=== PATIENT | male | born 1960 | race Caucasian/White ===

== ENCOUNTER 2017-10-19 06:19 | Emergency (ER) | payer OTHER ==
[~2017-10-19] VITALS: Ht 177.8 cm; Wt 113.4 kg
[~2017-10-19 06:19] MED LIST: HYDROCHLOROTH12.5 M3 PO
[2017-10-19 06:36] VITALS: BP 138/89
--- NOTE | 2017-10-19 07:22 | ED EYE COMPLAINT ---
History of Present Illness General Chief Complaint: Eye Problems Stated Complaint: LEFT EYE SWOLLEN SHUT STARTED OFF A STYE Source: patient, old records Exam Limitations: no limitations Vital Signs & Intake/Output Vital Signs & Intake/Output Vital Signs Date Time Temp Pulse Resp B/P B/P Pulse O2 O2 Flow FiO2 Mean Ox Delivery Rate 10/19 0636 97.7 61 18 138/89 97 Room Air Allergies Coded Allergies: No Known Allergies (11/01/15) Reconcile Medications Amoxicillin 250 MG CAPSULE 1 CAP PO TID STYE Hydrochlorothiazide 12.5 MG CAPSULE 1 CAP PO DAILY HIGH BLOOD PRESSURE Triage Note: PT TO ED C/O RT EYE PAIN, SWELLING AND YELLING DRAINAGE, GETTING WORSE OVER THE LAST 4 DAYS. HAS TRIED WARM COMPRESSES, CONTINUES TO WORSEN Triage Nurses Notes Reviewed? yes HPI: Patient noticed a stye forming on his left upper eyelid 3 days ago. Patient has been using warm compresses. This morning he woke up and his eyelid was very swollen and it was crusted shut. Patient needed to remove the crust with a warm washcloth. There is no blurry vision. Patient states that it hurts every time he blinks. There is no pain in his eye, that all the pain is in his upper eyelid. Patient denies any fevers or chills. Past History Travel History Traveled to [place] past 21 day No Medical History Any Pertinent Medical History? see below for history Cardiovascular: hypertension, AR X 2 Surgical History Surgical History: non-contributory Psychosocial History What is your primary language Cambodian Tobacco Use: Current Daily Use Daily Tobacco Use Amount/Type: => 5 Cigarettes daily ETOH Use: occasional use Illicit Drug Use: denies illicit drug use Family History Hx Contributory? No Review of Systems Review of Systems Constitutional: Reports: no symptoms. Eyes: Reports: see HPI. Respiratory: Reports: no symptoms. Cardiovascular: Reports: no symptoms. GI: Reports: no symptoms. Neurological/Psychological: Reports: no symptoms. Immunologic/Allergic: Reports: no symptoms. Physical Exam General Appearance: well developed/nourished, alert, awake, anxious General Inspection: normal inspection Eyelid: stye Conjunctiva/Sclera: normal inspection Cornea: normal inspection EOM: intact Pupil: normal accommodation, normal pupil, PERRL General Inspection: normal inspection EOM: intact Pupil: normal accommodation, normal pupil, PERRL Physical Exam Cardiovascular/Respiratory: normal breath sounds, normal peripheral pulses, regular rate/rhythm, no respiratory distress Neurologic/Psych: no motor/sensory deficits, awake, alert, oriented x 3, normal mood/affect Progress Differential Diagnosis: STYE Plan of Care: Current Medications Sig/Rachael Start time Last Medication Dose Stop Time Status Admin Amoxicillin 250 MG ONCE ONE 10/19 744 UNVr (Amoxil) 10/19 745 Departure Departure Disposition: HOME OR SELF CARE Condition: Stable Clinical Impression Primary Impression: Hordeolum externum (stye) Referrals: Patient Has No Primary Care Dr (PCP/Family) Additional Instructions: USE WARM COMPRESS 4 TO 6 TIMES A DAY TAKE AMOXIL PRESCRIBED RETURN IF SYMPTOMS WORSEN OR FOR ANY CONCERNS Departure Forms: Customer Survey General Discharge Information Prescriptions: Current Visit Scripts Amoxicillin 1 CAP PO TID #30 CAP
[2017-10-19] MEDS ORDERED: AMOXICILLIN250 M3 PO (07:37)
== END 2017-10-19 07:44 ==
LOC: ERH 06:19
DX: H00.014 Hordeolum externum left upper eyelid (principal)